=== PATIENT | female | born 1960 | race Caucasian/White ===

== ENCOUNTER 2021-11-15 07:02 | Day surgery (SDC) | payer BC ==
[~2021-11-15] VITALS: Ht 170.2 cm; Wt 78.3 kg
[~2021-11-15 07:02] MED LIST: DHEA; Flomax0.4 MG PO; GLACOMA EYE DROPS; LEVFLO500 PO; Norco 10-325 T1 EACH PO; OXYACE5T PO; PHENA200 PO; PROG100; PROM25 PO; TESTOSTERONE GEL; [UNRECOGNIZED DRUG - REMARK]
--- NOTE | 2021-11-15 07:02 | NUR ---
11/15/21 0702 Sherin Collado HISTORY, CHART, MEDICATIONS AND ALLERGIES REVIEWED BEFORE START OF PROCEDURE. PATIENT CONFIRMS NPO STATUS AND AGREES WITH SCHEDULED PROCEDURE. 3-LEAD EKG REVIEWED WITH PHYSICIAN PRIOR TO START OF PROCEDURE. MONITOR INTACT WITH CONTINUOUS PULSE OXIMETRY,CAPNOGRAPHY, 3-LEAD EKG, INTERMITTENT BP. SUPPLEMENTAL O2 TO BE TITRATED THROUGHOUT PROCEDURE TO MAINTAIN O2 SATURATION ABOVE 90%. PATIENT DETERMINED TO BE ASA APPROPRIATE FOR PROPOFOL SEDATION PRIOR TO START OF PROCEDURE BY DR. ARREDONDO.
[2021-11-15] MEDS ORDERED: OMEP20ER PO (07:21)
--- NOTE | 2021-11-15 09:46 | NUR ---
Patient up to Ambulate independently. Gait steady. Discharge instructions reviewed with patient. Patient verbalizes understanding. Copy given to patient to take home. Patient States Post-Procedure ride home has been arranged WITH [facility]. PT REPORTS PAIN IS DECREASING AND SHE HAS NO NAUSEA. PT READY TO DISCHARGE HOME.
== END 2021-11-15 09:48 | disposition home or self-care (01) ==
LOC: ORSCMMR 07:02 → ORD 08:00 → ORSCSDS 08:00 → ORSCMMR 08:00
PROVIDERS: Student in an Organized Health Care Education/Training Program
PROC: 0DB58ZX Excision of Esophagus, Via Natural or Artificial Opening Endoscopic, Diagnostic (ICD-10-PCS; principal; 2021-11-15 08:00)
PROC: 0DBM8ZX Excision of Descending Colon, Via Natural or Artificial Opening Endoscopic, Diagnostic (ICD-10-PCS; principal; 2021-11-15 08:00)
PROC: 0DBK8ZX Excision of Ascending Colon, Via Natural or Artificial Opening Endoscopic, Diagnostic (ICD-10-PCS; principal; 2021-11-15 08:00)
DX: R13.10 Dysphagia, unspecified (principal); K21.00 Gastro-esophageal reflux disease with esophagitis, without bleeding; Z12.11 Encounter for screening for malignant neoplasm of colon; Z86.010 Personal history of colon polyps; D12.2 Benign neoplasm of ascending colon; K44.9 Diaphragmatic hernia without obstruction or gangrene; K57.30 Diverticulosis of large intestine without perforation or abscess without bleeding; E78.00 Pure hypercholesterolemia, unspecified; Z79.899 Other long term (current) drug therapy
CPT/HCPCS: 88305; 88312; J2704; J7120

== ENCOUNTER → 2023-10-14 | Outpatient (CLI) | payer BC ==
[~2023-10-14] MED LIST changes: +OMEP20ER PO
== END | disposition home or self-care (01) ==
LOC: LAB SHORT 11:00 → LAB 11:00
DX: R30.0 Dysuria (principal)
CPT/HCPCS: 87077; 87086; 87186

== ENCOUNTER → 2023-10-22 | Outpatient (CLI) | payer BC | LOC: LAB 15:30 → LAB SHORT 15:30 | DX: R30.0 Dysuria (principal) | CPT/HCPCS: 87086 ==

== ENCOUNTER 2024-01-19 08:01 | Emergency (ER) | payer BC ==
[~2024-01-19] VITALS: Ht 170.2 cm; Wt 81.7 kg
[2024-01-19] MEDS ORDERED: NS 1,000 ML IV SCH (08:50)
[2024-01-19] MEDS ORDERED: Methocarbamol 500 MG Tab PO ONE (08:50)
[2024-01-19] MEDS ORDERED: Ketorolac Tromethamine 30mg Vial IV ONE (08:50)
[2024-01-19] MEDS ORDERED: Ondansetron HCl 2 MG / ML 2ML Vial IV ONE (08:50)
[2024-01-19 09:18] LABS: Source, Urine Clean Catch
[2024-01-19 09:27] LABS: BASOPHILS ABSOLUTE AUTO 0.02 K/mm3 (0.00-0.23); BASOPHILS PERCENT AUTO 0 % (0-2); EOSINOPHILS PERCENT AUTO 0 % (0-6); Hematocrit 43.8 % (33.0-51.0); Hemoglobin 14.7 g/dL (11.5-16.0); IMMATURE GRAN ABSOLUTE AUTO 0.03 K/mm3 (0.00-0.10); IMMATURE GRAN PERCENT AUTO 0 % (0-1); LYMPHOCYTES PERCENT AUTO 1 % (21-46); MONOCYTES ABSOLUTE AUTO 0.51 K/mm3 (0.16-1.47); MONOCYTES PERCENT AUTO 6 % (4-13); Mean Corpuscular HGB 30.6 pg (26.0-34.0); Mean Corpuscular HGB Conc 33.6 g/dL (31.5-36.5); Mean Corpuscular Volume 91 fL (80-100); Mean Platelet Volume 9.8 fL (9.1-12.4); NEUTROPHILS ABSOLUTE AUTO 7.98 K/mm3 (1.96-9.15); NEUTROPHILS PERCENT AUTO 92 % (41-73); Platelet Count 203 K/mm3 (150-400); RDW Coefficient Variation 13.2 % (11.7-14.2); RDW Standard Deviation 44.4 fL (35.1-46.3); White Blood Cell Count 8.64 K/mm3 (4.00-11.30)
[2024-01-19 09:36] LABS: Appearance, Urine Clear (Clear); Bilirubin, Urine Neg (Neg); Blood, Urine 1+ (Neg); Color, Urine Yellow (P-Yellow); Glucose Qualitative, Urine Neg (Neg); Ketones, Urine 2+ (Neg); Leukocyte Esterase, Urine Neg (Neg); Nitrite, Urine Neg (Neg); Protein, Urine 1+ (Neg); Urobilinogen, Urine 1+ (Normal)
[2024-01-19 09:44] LABS: Albumin, Blood 3.5 g/dL (3.4-5.0); Bilirubin, Direct 0.2 mg/dL (0.0-0.3); Bilirubin, Indirect 0.7 mg/dL (0.1-0.7); Bilirubin, Total 0.9 mg/dL (0.1-1.0); Bun/Creatinine Ratio 41.2 (12.0-20.0); Calcium, Blood 8.2 mg/dL (8.5-10.1); Creatinine, Blood 0.66 mg/dL (0.40-1.00); Globulin, Blood 3.5 g/dL (2.2-4.0); Potassium, Blood 3.8 mmol/L (3.5-5.5)
[2024-01-19 10:00] LABS: BASOPHILS PERCENT MAN 0 % (0-2); EOSINOPHILS PERCENT MAN 0 % (0-6); LYMPHOCYTES ABSOLUTE MAN 0.08 K/mm3 (0.84-5.20); LYMPHOCYTES PERCENT MAN 1 % (21-46); MONOCYTES ABSOLUTE MAN 0.34 K/mm3 (0.16-1.47); MONOCYTES PERCENT MAN 4 % (4-13); SEG NEUTROPHILS PERCENT MAN 95 % (41-73); TOTAL CELLS COUNTED 153
[2024-01-19 10:39] LABS: Bacteria Rare /hpf; Squamous Epithelial Cells Few /hpf (Few); White Blood Cells, Urine 0-2 /hpf (0-5)
[2024-01-19] MEDS ORDERED: ONDA4ODT MM (11:25)
[2024-01-19 11:30] VITALS: BP 110/68
== END 2024-01-19 11:52 | disposition home or self-care (01) ==
LOC: ER 08:01
PROVIDERS: Student in an Organized Health Care Education/Training Program
DX: S40.022A Contusion of left upper arm, initial encounter (principal); S80.12XA Contusion of left lower leg, initial encounter; W17.89XA Other fall from one level to another, initial encounter; S40.212A Abrasion of left shoulder, initial encounter; S50.812A Abrasion of left forearm, initial encounter; S50.811A Abrasion of right forearm, initial encounter; S80.811A Abrasion, right lower leg, initial encounter; R11.2 Nausea with vomiting, unspecified; R19.7 Diarrhea, unspecified; E86.0 Dehydration; Z88.2 Allergy status to sulfonamides
CPT/HCPCS: 71046; 80048; 80076; 81001; 83690; 85025; 96361; 96374; 96375; 99284-25; A9270; J1885; J2405; J7030